=== PATIENT | female | born 1930 | race Caucasian/White ===

== ENCOUNTER 2017-12-24 22:05 | Emergency (ER) | payer MEDICARE ==
[~2017-12-24] VITALS: Ht 160 cm; Wt 91.3 kg
[~2017-12-24 22:05] MED LIST: ASPIR-TRIN325 MG PO; GLIPIZIDE5 MG PO; LISINOPRIL20 MG PO; METFORMIN HCL500 MG PO; PRAVASTATIN SOD40 MG PO; ULTRAM50 MG PO
[2017-12-24] MEDS ORDERED: MORPHINE SULFATE 4 MG/ML SYR IV PRN (23:30)
[2017-12-24] MEDS ORDERED: ONDANSETRON HCL INJ 2 MG/ML VIAL IV STA (23:35)
[2017-12-25] MEDS ORDERED: SODIUM CHLORIDE 0.9% 1000ML 1,000 ML IV SCH (00:15)
[2017-12-25] MEDS ORDERED: INSULIN REGULAR, HUMAN 100 UNIT/1 ML 3ML VIAL SQ ONE (02:00)
[2017-12-25] MEDS ORDERED: SODIUM CHLORIDE 0.9% 1000ML 1,000 ML IV ONE (03:30)
[2017-12-25] MEDS ORDERED: PIPER-TAZ 3.375 GM 50 ML IV ONE (03:45)
[2017-12-25 04:47] VITALS: BP 161/77
== END 2017-12-25 05:00 | disposition short-term general hospital (02) ==
LOC: FSED 22:05
DX: R10.84 Generalized abdominal pain (principal); R11.2 Nausea with vomiting, unspecified; K57.90 Diverticulosis of intestine, part unspecified, without perforation or abscess without bleeding; K80.20 Calculus of gallbladder without cholecystitis without obstruction; I10 Essential (primary) hypertension; E11.9 Type 2 diabetes mellitus without complications; E78.5 Hyperlipidemia, unspecified; D64.9 Anemia, unspecified; N19 Unspecified kidney failure
CPT/HCPCS: 74176; 76705; 80053; 82553; 84484; 85025; 93005; 96372; 96374; 96375; 99284; J2405; J2543